=== PATIENT | female | born 1995 ===

== ENCOUNTER 2025-01-27 13:15 | Inpatient (IN) | payer OTHER ==
[~2025-01-27] VITALS: Ht 152.4 cm; Wt 67.1 kg
[2025-01-28 05:14] VITALS: BP 119/75
[2025-01-28] MEDS ORDERED: CLINDAMYCIN PHOSPHATE 900 MG in 0.9 % SODIUM CHLORIDE 100 ML IV SCH (06:10)
[2025-01-28] MEDS ORDERED: RINGERS SOLUTION,LACTATED 1,000 ML IV SCH (06:15)
[2025-01-28] MEDS ORDERED: PRENATAL CAPLE1 EAC1 PO (06:23)
[2025-01-28] MEDS ORDERED: OXYTOCIN 20 UNITS/500ML RL PIGGYBAG IV ONE (06:39)
[2025-01-28 06:43] LABS: URINE APPEARANCE Clear; URINE BILIRRUBIN Negative (NEGATIVE); URINE BLOOD Negative; URINE COLOR Yellow; URINE GLUCOSE Negative (NEGATIVE); URINE KETONE Negative (NEGATIVE); URINE LEUKOCYTE Negative; URINE NITRATE Negative; URINE PROTEIN 30 (NEGATIVE); URINE UROBILINOGEN 0.2 E.U./dl
[2025-01-28 06:45] LABS: URINE BACTERIA 6.8 uL (0.0-1933); URINE EPITHELIAL CELLS 2.7 uL (0.0-38.8); URINE RBC 12.6 uL (0.0-20.8); URINE WBC 5.6 uL (0.0-23.2)
[2025-01-28] MEDS ORDERED: OXYTOCIN 500 ML IV SCH (06:45)
[2025-01-28 06:49] LABS: BASO % 0.3 % (0.1-1.2); EOS # 0.03 (0.04-0.54); EOS % 0.3 % (0.7-7.0); LYMPH # 1.79 (1.18-3.74); LYMPH % 15.7 % (19.3-53.1); MEAN PLATELET VOLUME 13.10 fl (9.4-12.4); MONO # 0.67 (0.24-0.82); MONO % 5.9 % (4.7-12.5); NEUT # 8.84 (1.56-6.13); NEUT % 77.3 % (34.0-71.1); RED CELL DISTRIBUTION WIDTH 12.7 % (11.6-14.4)
[2025-01-28 06:54] LABS: URINE CAST 0.14 uL (0.0-1.40)
[2025-01-28 07:18] LABS: INR < 0.93
[2025-01-28 07:37] VITALS: BP 114/77
[2025-01-28 08:09] LABS: ALT/SGPT 22.0 U/L (12-78); AST/SGOT 20.0 U/L (15-37); BILIRUBIN TOTAL 0.33 mg/dL (0.3-1.2); BUN CREA RATIO 20.0 (7.0-25.0); CREATININE SERUM 0.59 mg/dL (0.55-1.02); GFR 121.37; GLOBULINA 3.9 G/DL (2.4-3.5); GLUCOSE FASTING 111.0 mg/dL (65-100); OSMOLALITY SERUM 278.0 MOSM/KG (275-295)
[2025-01-28 11:19] VITALS: BP 138/68
[2025-01-28 12:15] VITALS: BP 148/77
[2025-01-28] MEDS ORDERED: MORPHINE SULFATE 4 MG/ML VIAL IV ONE (12:15)
[2025-01-28] MEDS ORDERED: CHLORHEXIDINE GLUCONATE 120 ML BOTTLE TOP ONE ×2 (15:13→19:53)
[2025-01-28] MEDS ORDERED: LIDOCAINE HCL 1% 10ML VIAL ONE (15:13)
[2025-01-28] MEDS ORDERED: OXYTOCIN 20 UNITS/1000ML RL PIGGYBAG IV ONE (15:13)
[2025-01-28] MEDS ORDERED: ERYTHROMYCIN BASE OPHT 1GM EACH TUBE OP ONE ×2 (15:13→17:43)
[2025-01-28 15:29] VITALS: BP 144/70
[2025-01-28] MEDS ORDERED: OXYTOCIN 10 UNITS/ML VIAL ONE (17:43)
[2025-01-28] MEDS ORDERED: CEFAZOLIN SODIUM 1,000 MG VIAL ONE (19:54)
[2025-01-28] MEDS ORDERED: MORPHINE SULFATE 4 MG/ML VIAL IV PRN (21:00)
[2025-01-28] MEDS ORDERED: CLINDAMYCIN PHOSPHATE 150 MG/ML (900mg) ONE (23:53)
[2025-01-29 01:17] VITALS: BP 111/68
[2025-01-29 06:16] LABS: BASO % 0.2 % (0.1-1.2); EOS # 0.00 (0.04-0.54); EOS % 0.0 % (0.7-7.0); LYMPH # 2.04 (1.18-3.74); LYMPH % 10.9 % (19.3-53.1); MEAN PLATELET VOLUME 12.90 fl (9.4-12.4); MONO # 1.26 (0.24-0.82); MONO % 6.7 % (4.7-12.5); NEUT # 15.30 (1.56-6.13); NEUT % 81.8 % (34.0-71.1); RED CELL DISTRIBUTION WIDTH 13.2 % (11.6-14.4)
[2025-01-29] MEDS ORDERED: ACETAMINOPHEN 500 MG GEL..CAP PO PRN (07:30)
[2025-01-29 08:00] VITALS: BP 108/71
[2025-01-29 15:00] VITALS: BP 104/65
[2025-01-30] VITALS: BP 107/70
[2025-01-30 08:00] VITALS: BP 130/80
[2025-01-30] MEDS ORDERED: CETIRIZINE HCL 10 MG TABLET PO ONE (11:30)
[2025-01-31] VITALS: BP 93/55
[2025-01-31 08:00] VITALS: BP 139/80
[2025-01-31] MEDS ORDERED: IBUPROFEN800 MG PO (09:59)
[2025-01-31 16:49] VITALS: BP 111/71
== END 2025-01-31 18:26 | disposition home or self-care (01) | DRG 788 ==
LOC: LDR 01-28 06:07 → O/R 01-28 19:58 → OB/GYN 01-28 21:41 → O/R 01-30 09:29 → OB/GYN 01-30 09:30
PROVIDERS: ADMIT Specialist; ATTEND Specialist
PROC: 4A1HXCZ Monitoring of Products of Conception, Cardiac Rate, External Approach (ICD-10-PCS; 2025-01-28)
PROC: 10D00Z1 Extraction of Products of Conception, Low, Open Approach (ICD-10-PCS; principal; 2025-01-28 19:00)
DX: O33.8 Maternal care for disproportion of other origin (principal); Z3A.39 39 weeks gestation of pregnancy; Z37.0 Single live birth; O99.824 Streptococcus B carrier state complicating childbirth